=== PATIENT | male | born 1990 | race African-American/Black ===

== ENCOUNTER 2016-08-31 20:11 | Emergency (ER) | payer OTHER ==
[2016-08-31 20:14] VITALS: BP 130/73; PULSE 71; RESP 16; TEMP 98.9
--- NOTE | 2016-08-31 20:39 | ED ---
Lower Extremity Injury HPI - General Chief Complaint: Extremity Injury, Lower Stated Complaint: R foot injury Time Seen by Provider: 08/31/16 20:35 Source: patient, RN notes reviewed Mode of arrival: ambulatory Limitations: no limitations - History of Present Illness Initial Comments: 25-year-old male presents emergency Department chief complaint of right great toe pain. Patient states that she has today. She states swelling great toe. Patient has been able to ambulate. Patient states took Motrin. Take pain is moderate without radiation worse touch. Patient concerned due to the continued symptoms that they should be evaluated. Patient denies any recent fever, chills , shortness of breath, chest pain, back pain, abdominal pain, nausea vomiting, numbness or tingling, dysuria or hematuria, constipation or diarrhea, headaches or visual changes, or any other current symptoms. - Related Data Previous Rx's Medication Instructions Recorded Amoxic-Pot Clav 875-125Mg 1 tab PO Q12HR #20 tablet 09/18/15 [Augmentin 875-125] HYDROcodone/APAP 5-325MG [Shreve 1 - 2 tab PO Q8HR PRN #15 tab 09/18/15 5-325] Hydrocodone/Acetaminophen [[place] 1 each PO Q6HR PRN #20 tab 08/31/16 5-325] Allergies Allergy/AdvReac Type Severity Reaction Status Date / Time No Known Allergies Allergy Verified 08/31/16 20:14 Review of Systems ROS Statement: Those systems with pertinent positive or pertinent negative responses have been documented in the HPI. ROS Other: All systems not noted in ROS Statement are negative. Past Medical History Past Medical History: No Reported History History of Any Multi-Drug Resistant Organisms: None Reported Past Surgical History: No Surgical Hx Reported Past Psychological History: No Psychological Hx Reported Smoking Status: Current every day smoker Past Alcohol Use History: Occasional Past Drug Use History: None Reported General Exam - General Exam Comments Initial Comments: General: The patient is awake and alert, in no distress, and does not appear acutely ill. Neck: The neck is supple, there is no tenderness. Cardiovascular: There is a regular rate and rhythm. No murmur, rub or gallop is appreciated. Respiratory: Lungs are clear to auscultation, respirations are non-labored, breath sounds are equal. No wheezes, stridor, rales, or rhonchi. Musculoskeletal: Sensation was pulses of the right lower extremity. Full range of motion of the right ankle and foot. Patient does appear to have some tenderness over the right great toe with minimal redness. There is 5/5 muscle strength testing throughout the right foot. No abrasion or skin deformity noted. Neurological: CN II-XII intact, There are no obvious motor or sensory deficits. Coordination appears grossly intact. Speech is normal. Skin: Skin is warm and dry and no rashes or lesions are noted. Psychiatric: Normal mood and affect. Limitations: no limitations Course Vital Signs 08/31/16 20:11 Temperature 98.9 F Pulse Rate 71 Respiratory 16 Rate Blood Pressure 130/73 O2 Sat by Pulse 98 Oximetry Procedures - Orthopedic Splinting/Casting Injury #1 Side: right Lower Extremity Injury Location: toe Lower Extremity Immobilizer: posterior splint Medical Decision Making - Medical Decision Making 25-year-old male presents for right toe pain. This time patient does appear to have a toe fracture. He was placed in a splint due to the severity of the fracture and given follow-up to orthopedic discussed return parameters all patient's questions. He stated that he understood and he is here the plan. He will be discharged home. - Radiology Data Radiology results: report reviewed, image reviewed Disposition Clinical Impression: Toe fracture, right Disposition: HOME SELF-CARE Condition: Stable Instructions: Toe Fracture (ED) Additional Instructions: Please use medication as discussed. Please follow up with family doctor if symptoms have not improved over the next two days. Please return to the emergency room if your symptoms increase or worsen or for any other concerns. Prescriptions: Hydrocodone/Acetaminophen [Shreve 5-325] 1 each PO Q6HR PRN #20 tab PRN Reason: Pain Referrals: Kimi Crane MD [STAFF PHYSICIAN] - 1-2 days Cali Ann MD [STAFF PHYSICIAN] - 1-2 days Time of Disposition: 21:09
--- NOTE | 2016-08-31 21:15 | XR ---
EXAMINATION TYPE: XR foot complete RT DATE OF EXAM: 08/31/2016 COMPARISON: NONE HISTORY: Pain TECHNIQUE: 3 views FINDINGS: There is a nondisplaced oblique fracture along the shaft of the proximal phalanx of the big toe. Fracture line extends to the MP joint. There is no dislocation. IMPRESSION: Intra-articular nondisplaced fracture of the big toe.
== END 2016-08-31 21:21 | disposition home or self-care (01) ==
LOC: EC 20:11
DX: S92.414A Nondisplaced fracture of proximal phalanx of right great toe, initial encounter for closed fracture (principal); F17.200 Nicotine dependence, unspecified, uncomplicated; W22.8XXA Striking against or struck by other objects, initial encounter
CPT/HCPCS: 29515; 99283

== ENCOUNTER → 2016-09-15 | Outpatient (CLI) | payer OTHER ==
--- NOTE | 2016-09-15 15:31 | CT ---
EXAMINATION TYPE: CT foot RT wo con DATE OF EXAM: 09/15/2016 COMPARISON: NONE HISTORY: Pain in right foot CT DLP: 201.80 mGycm Automated exposure control for dose reduction was used. FINDINGS: There is a comminuted fracture of the proximal phalanx first digit. Intra-articular extension oblique 2 longitudinal fractures are evident. There is step-off along the inferior surface posteriorly. No additional fractures are evident. Joint spaces are otherwise unremarkable. Soft tissues appear nor mal. IMPRESSION: 1. COMMINUTED FRACTURE PROXIMAL PHALANX FIRST DIGIT RIGHT FOOT. THERE IS INTRA-ARTICULAR EXTENSION AN D STEP-OFF ALONG THE PROXIMAL PHALANX PROXIMAL ARTICULAR SURFACE.
== END | disposition home or self-care (01) ==
LOC: RADCTMAIN 13:01
PROVIDERS: ATTEND Orthopaedic Surgery
DX: S92.414D Nondisplaced fracture of proximal phalanx of right great toe, subsequent encounter for fracture with routine healing (principal)